=== PATIENT | male | born 1960 | race Hispanic/Latino ===

== ENCOUNTER 2024-08-01 15:21 | Inpatient (IN) | payer OTHER ==
[~2024-08-01] VITALS: Ht 180.3 cm; Wt 132.0 kg
[~2024-08-01 15:21] MED LIST: AEC81 PO; AMLO-257 PO; ATOR10 PO; AZIT250T9 PO; BENZ-226 PO; BUDE0.5A3 IH; BUDE10.7 IH; CEFD300C3 PO; FAMO20TA8 PO; LISI10TA24 PO; LISI20TA24 PO; METF-446 PO
--- NOTE | 2024-08-01 15:48 | EKG ---
[facility] Test Date: 2024-08-01 Test Time: 15:45:15 Pat Name: JAY WAHL Department: [facility] Room: Gender: M Ad Copy Writer: [id number] : 1960 Requested By: RISHABH ECHEVERRIA Order Number: [id number] Reading MD: Russell Garcia Measurements Intervals [place] Rate: 60 P: 15 MO: 174 QRS: 22 QRSD: 111 T: 19 QT: 420 QTc: 422 Interpretive Statements Sinus rhythm Compared to ECG 01/03/2024 20:29:01 Left ventricular hypertrophy no longer present ST (T wave) deviation no longer present Electronically Signed On 08-01-2024 15:48:55 GL ACCOUNTANT by Russell Garcia Please click the below link to view image of tracing.
--- NOTE | 2024-08-01 16:00 | HMCIMG ---
Exam: NONCONTRAST CT BRAIN REASON: Syncope. COMPARISON: None. TECHNIQUE: Images are obtained from vertex to the skull base. The exam was performed without IV contrast. FINDINGS: There is normal appearing brain parenchyma. There are no focal mass lesions. There is is no evidence of intracranial hemorrhage or acute stroke. Ventricles and sulci appear normal. Posterior fossa and brainstem structures are unremarkable. Paranasal sinuses and remaining extracranial soft tissues appear normal as well. IMPRESSION: 1. Normal noncontrast CT brain. CT was performed with one or more following dose reduction techniques: automated exposure control, adjustment of the mA and kv according to patient's size, or use of a iterative reconstruction technique.
--- NOTE | 2024-08-01 16:25 | HMCIMG ---
CHEST 1VW REASON: Shortness of breath COMPARISON: None. FINDINGS: Single view of the chest was obtained. Lungs are clear. Heart size is normal. There is no pulmonary vascular congestion. Mediastinum and bony thorax appear unremarkable. IMPRESSION: 1. Normal single view chest x-ray.
[2024-08-01 16:27] LABS: BASOPHILS # (AUTO) 0.06 K/uL (0.00-0.20); BASOPHILS % (AUTO) 0.6 % (0.0-5.0); EOSINOPHILS % (AUTO) 1.9 % (0.0-8.0); HEMATOCRIT 45.9 % (42-54); IMMATURE GRANULOCYTE ABSOLUTE 0.04 K/uL (0-1); LYMPHOCYTES # (AUTO) 1.8 K/uL (1.0-4.8); LYMPHOCYTES % (AUTO) 17.4 % (21.0-51.0); MEAN CORPUSCULAR HEMOGLOBIN 30.4 pg (27.0-33.0); MEAN CORPUSCULAR HGB CONC 34.2 g/dL (32.0-36.0); MONOCYTES # (AUTO) 0.8 K/uL (0.1-1.0); MONOCYTES % (AUTO) 7.2 % (3.0-13.0); NEUTROPHILS # (AUTO) 7.6 K/uL (1.8-7.7); NEUTROPHILS % (AUTO) 72.5 % (40.0-77.0); PLATELET COUNT (AUTO) 199 K/uL (130-400); RED BLOOD CELL COUNT(AUTO) 5.16 MIL/uL (4.50-6.20); RED CELL DISTRIBUTION WIDTH 13.9 % (11.0-15.5); WHITE BLOOD COUNT (AUTO) 10.5 K/uL (4.8-10.8)
[2024-08-01 16:42] LABS: CREATININE 0.8 mg/dL (0.5-1.3); POTASSIUM 3.9 mmol/L (3.5-5.1)
[2024-08-01 16:45] LABS: INR 0.95 (0.85-1.15); PROTHROMBIN TIME 10.7 SEC (9.6-11.6)
[2024-08-01 16:47] LABS: PARTIAL THROMBOPLASTIN TIME 26.8 SEC (26.3-35.5)
[2024-08-01 16:48] LABS: ALBUMIN 3.7 g/dL (3.5-5.0); BILIRUBIN,DIRECT 0.2 mg/dL (0.0-0.3); BILIRUBIN,TOTAL 0.7 mg/dL (0.2-1.0); TOTAL PROTEIN, SERUM 7.3 g/dL (6.0-8.3)
--- NOTE | 2024-08-01 17:00 | ERN ---
ED Note History of Present Illness Stated Complaint: SYNCOPE LAST WEEK Chief Complaint: Syncope Time Seen by MD: 15:24 Dictation: This is a case of a 64-year-old male with a past medical history of obesity, diabetes mellitus type 2, hypertension, cholesterol who presented to the ER for further evaluation in view of 2 syncope episodes in the past 2 months. He reports that during his 1st syncope episode in May, he experienced dizziness, generalized body weakness and fell, hitting his head. In July, he had additional syncope episode, accompanied by dizziness, generalized body weakness and a significantly elevated blood pressure according to his son. He also experienced post syncope confusion during these episodes. He also mentions about chronic bilateral lower extremity edema for 2-3 years. He has recently started using amlodipine besylate 5 mg p.o. once daily. He denies fever, chills, nausea, vomiting, shortness of breath, chest pain, palpitations, abdominal pain, burning sensation when urinating/increased frequency of urination, diarrhea/constipation. Allergies: Coded Allergies: No Known Drug Allergies (Verified Allergy, Unknown, 09/05/21) Home Meds Active Scripts Azithromycin (Azithromycin) 250 Mg Tablet, 250 MG PO BID, #14 TAB Prov:CHUCHOTHAD SAAVEDRA GI ASST 24 Cefdinir (Cefdinir) 300 Mg Capsule, 300 MG PO BID, #14 CAP Prov:CHUCHOTHAD SAAVEDRA B GI ASST 24 Lisinopril (Lisinopril) 10 Mg Tablet, 10 MG PO BID, #30 TAB Prov:THAD MCLEOD GI ASST 24 Budesonide (Budesonide) 0.5 Mg/2 Ml Ampul.neb, 0.5 MG IH BIDRESP, #30 INH Prov:CHUCHOTHAD SAAVEDRA GI ASST 24 Famotidine (Famotidine) 20 Mg Tablet, 20 MG PO BID, #30 TAB Prov:CHUCHOTHAD SAAVEDRA GI ASST 24 Benzonatate (Benzonatate) 100 Mg Capsule, 200 MG PO TID, #60 CAP Prov:THAD MCLEOD GI ASST 01/06/24 Reported Medications Budesonide/Glycopyr/Formoterol (Breztri Aerosphere Inhaler) 160 Mcg-9 Mcg-4.8 Mcg/Actuation Hfa.aer.ad, 10.7 GM IH Q6HPRN 01/04/24 Aspirin (ASPIRIN 81 MG ECTAB) 81 Mg Ectab, 81 MG PO DAILY, TAB.EC 01/04/24 Lisinopril (Lisinopril) 20 Mg Tablet, 10 MG PO BID, TAB 01/04/24 Amlodipine Besylate (Amlodipine Besylate) 5 Mg Tablet, 5 MG PO BID, TAB 01/04/24 Metformin HCl (Metformin HCl) 1,000 Mg Tablet, 1000 MG PO BID, TAB 01/04/24 Atorvastatin Calcium (LIPITOR) 20 Mg Tab, 20 MG PO HS, TAB 01/04/24 Past Medical History Past Medical History: Diabetes-Type II, High Cholesterol, Hypertension Surgical History: None Review of System Dictation Constitutional: No appetite loss, No fevers, chills , No night sweats, No weakness, fatigue Neck: No swelling. pain, neck stiffness Respiratory: No cough, shortness of breath, wheezing Cardiovascular: No chest pain,, palpitations, dyspnea, No edema Gastrointestinal: No abdominal pain, No nausea, vomiting, No diarrhea, constipation Genitourinary: No painful urination, No blood in urine, No urinary incontinence, No frequency or urgency Musculoskeletal: No joint pain, muscle pain, swelling or stiffness, Neurological: No numbness, tingling, No weakness, tremors or seizures Psychiatric: : No depression, No anxiety, No sleep disturbance, No Memory changes Initial Vital Sign VS Vital Signs Date Time Temp Pulse Resp B/P (MAP) Pulse Ox O2 Delivery O2 Flow Rate FiO2 08/01/24 15:22 98.2 62 20 134/82 Room Air 0 08/01/24 16:58 96 21 Physical Exam Dictation Physical Exam Dictation VITAL SIGNS: Reviewed. GENERAL APPEARANCE: Alert, oriented x3, no acute distress, obese. HEAD AND FACE: Non-traumatic. EYES: PERRL, pink conjunctivas, eyelid no trauma, anterior chamber clear. NOSE: No discharge, no bleeding. OROPHARYNX: Mouth normal, teeth no caries, tongue pink. Pharynx clear, no erythema. Tonsils no exudates, no abscesses noted. Mucous membrane moist. NECK: Supple, non-tender, no thyromegaly, no masses, no JVD, no bruits. BREAST: Deferred. CHEST: No tenderness, no crepitus, no paradoxical movement, no retractions. LUNGS: Clear, well-ventilated, symmetric, no rales, no wheezing, no rhonchi, no stridor, good breath sounds bilaterally. HEART: Regular rate, regular rhythm VASCULAR: No peripheral edema. ABDOMEN: Soft, positive bowel sounds, nondistended, no guarding, nontender, no rebound RECTAL: Deferred. GENITAL: Deferred. NEUROLOGICAL: Normal speech, gross motor function intact, gross sensory function intact. MUSCULOSKELETAL: Neck nontender, full range of motion, back nontender, full range of motion. EXTREMITIES: Nontender, full range of motion. SKIN: Color pink, dry, no turgor, no rash, no lacerations, no abrasions, no contusions. LYMPHATICS: Deferred. Results (Laboratory/Radiology) Laboratory/Radiology Laboratory Tests Test 08/01/24 16:21 White Blood Count 10.5 K/uL (4.8-10.8) Red Blood Count 5.16 MIL/uL (4.50-6.20) Hemoglobin 15.7 g/dL (14.0-18.0) Hematocrit 45.9 % (42-54) Mean Corpuscular Volume 89.0 fL (79-99) Mean Corpuscular Hemoglobin 30.4 pg (27.0-33.0) Mean Corpuscular Hemoglobin Concent 34.2 g/dL (32.0-36.0) Red Cell Distribution Width 13.9 % (11.0-15.5) Platelet Count 199 K/uL (130-400) Mean Platelet Volume 11.6 fL (7.5-10.5) H Immature Granulocyte % (Auto) 0.4 % (0-1) Neutrophils (%) (Auto) 72.5 % (40.0-77.0) Lymphocytes (%) (Auto) 17.4 % (21.0-51.0) L Monocytes (%) (Auto) 7.2 % (3.0-13.0) Eosinophils (%) (Auto) 1.9 % (0.0-8.0) Basophils (%) (Auto) 0.6 % (0.0-5.0) Neutrophils # (Auto) 7.6 K/uL (1.8-7.7) Lymphocytes # (Auto) 1.8 K/uL (1.0-4.8) Monocytes # (Auto) 0.8 K/uL (0.1-1.0) Eosinophils # (Auto) 0.20 K/uL (0.00-0.70) Basophils # (Auto) 0.06 K/uL (0.00-0.20) Absolute Immature Granulocyte (auto 0.04 K/uL (0-1) Nucleated Red Blood Cells 0.0 % (0.0-0.19) Prothrombin Time 10.7 SEC (9.6-11.6) Prothromb Time International Ratio 0.95 (0.85-1.15) Activated Partial Thromboplast Time 26.8 SEC (26.3-35.5) Sodium Level 142 mmol/L (136-145) Potassium Level 3.9 mmol/L (3.5-5.1) Chloride Level 104 mmol/L (101-111) Carbon Dioxide Level 29 mmol/L (21-32) Blood Urea Nitrogen 9 mg/dL (7-18) Creatinine 0.8 mg/dL (0.5-1.3) Glomerular Filtration Rate Calc 99 mL/min (>90) Random Glucose 104 mg/dL (70-105) Total Calcium 9.3 mg/dL (8.5-10.1) Total Bilirubin 0.7 mg/dL (0.2-1.0) Direct Bilirubin 0.2 mg/dL (0.0-0.3) Aspartate Amino Transf (AST/SGOT) 23 U/L (10-37) Alanine Aminotransferase (ALT/SGPT) 29 U/L (12-78) Alkaline Phosphatase 99 U/L (50-136) Troponin I High Sensitivity 10 ng/L (4-75) Total Protein 7.3 g/dL (6.0-8.3) Albumin 3.7 g/dL (3.5-5.0) X-RAY Comment: PROCEDURE: CXR1VW - CHEST 1VW CHEST 1VW REASON: Shortness of breath COMPARISON: None. FINDINGS: Single view of the chest was obtained. Lungs are clear. Heart size is normal. There is no pulmonary vascular congestion. Mediastinum and bony thorax appear unremarkable. IMPRESSION: 1. Normal single view chest x-ray. CT Scan Comment: PROCEDURE: HEAD WO - CT HEAD/BRAIN W/O CONTRAST Exam: NONCONTRAST CT BRAIN REASON: Syncope. COMPARISON: None. TECHNIQUE: Images are obtained from vertex to the skull base. The exam was performed without IV contrast. FINDINGS: There is normal appearing brain parenchyma. There are no focal mass lesions. There is is no evidence of intracranial hemorrhage or acute stroke. Ventricles and sulci appear normal. Posterior fossa and brainstem structures are unremarkable. Paranasal sinuses and remaining extracranial soft tissues appear normal as well. IMPRESSION: 1. Normal noncontrast CT brain. ED Course ED Course Orders Procedure Category Date Status Time 12 Lead Ekg Tracing- EKG 08/01/24 Resulted Technical 15:24 Cbc With Differential LAB 08/01/24 Complete 15:24 Basic Metabolic Panel LAB 08/01/24 Complete 15:24 Hepatic Function Panel LAB 08/01/24 Complete 15:24 Pt And Ptt LAB 08/01/24 Complete 15:24 Troponin I High LAB 08/01/24 Complete Sensitivity 15:24 Urinalysis LAB 08/01/24 Logged W/Microscopic 15:24 Chest 1vw RAD 08/01/24 Resulted 15:24 Ct Head/Brain W/O CT 08/01/24 Resulted Contrast 15:24 Vital Signs Date Time Temp Pulse Resp B/P (MAP) Pulse Ox O2 Delivery O2 Flow Rate FiO2 08/01/24 18:24 66 18 156/85 94 Room Air* 0 08/01/24 16:58 98.8 62 15 154/84 96 Room Air* 0 21 08/01/24 15:22 98.2 62 20 134/82 Room Air 0 Medical Decision Making [facility] Potential differential diagnoses include: Cardiac arrhythmias Orthostatic syncope Assessment: We will order CBC to rule any anemia, infections and to evaluate the overall health of the patient. CMP was ordered in order to assess various electrolytes, kidney function, liver function ,protein levels and blood glucose levels, I will re-evaluate the patient after treatment and diagnostic exams have returned to determine whether they require further testing, can be safely discharged home, or need admission for further treatment and evaluation. Given the social determinants of health affecting care, including literacy, access to medical care, prescription drug management, and [id number] drugs, I will ensure that treatment plans are tailored accordingly. Revaluation : Patient is alert awake and oriented. Hemodynamically stable. La bs CBC, BMP, PT INR results are unremarkable. Chest x-ray and CT head resulted in no acute findings. Disposition: DX & DISP Disposition: Inpatient Departure Impression: Primary Impression: Syncope Condition: Stable Referrals: SELF,REFERRAL (PCP) DANILO ORTIZ MD Aug 01, 2024 17:00 RISHABH ECHEVERRIA MD Aug 01, 2024 18:27
--- NOTE | 2024-08-01 18:27 | NUR ---
ENDORSED CARE TO KAVITHA MIJARES AT THIS TIME.
[2024-08-01] MEDS ORDERED: morPHINE 2 MG SYG IVP PRN (18:30)
[2024-08-01] MEDS ORDERED: ondanSETRON 4MG INJ IV PRN (18:30)
--- NOTE | 2024-08-01 18:30 | HP ---
History of Present Illness Reason for Visit: syncope History of Present Illness Mr. Eng is a 64-year-old male that was seen and examined today on 08/01/2024. Patient is a good historian and personal health. Patient states that he came to the emergency department with a chief complaint of lightheadedness. Onset was May 2024. Location is to head. Duration is on and off. Episodes last 5-10 seconds. Character is described as loss of balance. There was no alleviating factors. There was no aggravating factors. On previous episodes of dizziness they have been precipitated by cutting the grass. But patient has also had episodes that occur spontaneously while driving. Patient denies any associated chest pain or shortness and breath. Patient was sent to emergency department from the [place] after PCP contacted patient's leader writer in reference to a syncope. Dr. Santiago recommended patient go to the emergency department for evaluation. Today in the emergency department vital signs are within normal limits, CBC is unremarkable, chemistry unremarkable, no urinalysis has been ordered or sent to lab, chest x-ray unremarkable, CT head unremarkable. Emergency room physician recommended that patient be admitted with a diagnosis of syncope. Past Medical History Patient History: Unknown MOTHER FATHER PAST MEDICAL HISTORY: Hypertension, hyperlipidemia, diabetes mellitus type PAST SURGICAL HISTORY: Denied any surgical history PAST SOCIAL HISTORY: Previous history of smoking. Denied any alcohol use. Denied any drug use Review of Systems General: No Fever, No Chills, No Night Sweats, No Fatigue, No Malaise, No Appetite, No Other HEENT: No Head Aches, No Visual Changes, No Eye Pain, No Ear Pain, No Dysphasia, No Sinus Congestion, No Post Nasal Drip, No Sore Throat, No Other Pulmonary: No Dyspnea, No Cough, No Pleuritic Chest Pain, No Other Cardiovascular: Lt Headedness; No: Chest Pain, Palpitations, Orthopnea, Paroxysmal Noc. Dyspnea, Edema, Other Gastrointestinal: No: Nausea, Vomiting, Abdominal Pain, Diarrhea, Constipation, Melena, Hematochezia, Other Genitourinary: No Dysuria, No Frequency, No Incontinence, No Hematuria, No Retention, No Other Musculoskeletal: No: other, neck pain, shoulder pain, arm pain, back pain, hand pain, leg pain, foot pain Skin: No Urticaria, No Rash, No Other Neurological: No: Weakness, Numbness, Incoordination, Change in speech, Confusion, Seizures, Other Allergies: Coded Allergies: No Known Drug Allergies (Verified Allergy, Unknown, 09/05/21) Scheduled Amlodipine Besylate (Amlodipine Besylate), 5 MG PO BID, (Reported) Aspirin (Aspirin 81 Mg Ectab), 81 MG PO DAILY, (Reported) Atorvastatin Calcium (Lipitor), 20 MG PO HS, (Reported) Azithromycin (Azithromycin), 250 MG PO BID Benzonatate (Benzonatate), 200 MG PO TID Budesonide (Budesonide), 0.5 MG IH BIDRESP Budesonide/Glycopyr/Formoterol (Breztri Aerosphere Inhaler), 10.7 GM IH Q6HPRN, (Reported) Cefdinir (Cefdinir), 300 MG PO BID Famotidine (Famotidine), 20 MG PO BID Lisinopril (Lisinopril), 10 MG PO BID, (Reported) Lisinopril (Lisinopril), 10 MG PO BID Metformin HCl (Metformin HCl), 1,000 MG PO BID, (Reported) Exam Vital Signs Vital Signs Date Time Temp Pulse Resp B/P (MAP) Pulse Ox O2 Delivery O2 Flow Rate FiO2 08/01/24 18:24 66 18 156/85 94 Room Air* 0 21 08/01/24 16:58 98.8 General Appearance: Alert, Oriented X3, Cooperative, No acute distress HEENT: Atraumatic, EOMI Respiratory: Clear to auscultation, Normal air movement, NL respiratory effort Cardiovascular: Regular rate, Regular rhythm, Normal S1, Normal S2 Abdominal: Normal bowel sounds, Soft, No tenderness Extremities: No edema Skin: No significant lesion Neuro: Normal speech, Strength at 5/5 X4 ext, Sensation intact, Cranial nerves 3-12 NL Psych/Mental Status: Mental status NL, Mood NL, Thoughts/Content NL Assessment/Plan ASSESSMENT: [ Syncope, POA Diabetes mellitius type2 Hypertension Hyperlipidemia] PLAN: [ Admit patient to PCU as inpatient status. Place patient on telemetry monitoring. Patient will be followed by cardiology service, Dr. santiago 2D echo in a.m. Carotid Dopplers, follow up with the results Neuro checks every 4 hours with the vital signs (check GCS, level of consciousness, extremity movement, pupil reaction, hand grasp strength, speech clarity) Fall precautions Orthostatic vital signs Check hemoglobin A1c in a.m. Glucometer checks a.c. and HS 1800 ADA diet Humulin R sliding scale 1/2 dose Consider resuming home medications once they are reconciled For now, Hydralazine 10 mg IV every 4 hours for systolic blood pressure greater than 160 mmHg GI prophylaxis, famotidine 20 mg by mouth once daily. DVT prophylaxis, Lovenox 40 mg subcutaneously once daily. ADVANCED CARE PLANNING 1. Which of the following were discussed? Hospice Care - Yes Therapeutic options - Yes Advance Directives - Yes patient states he does not have any advance directives in place at this time, however his can make decisions for him if becomes unable. Other discussions - patient wishes to remain a full code at this time 2. Discussed with who? Patient 3. Voluntary nature of this service was explained to the patient? Yes 4. Amount of time spent - ____ 16 minutes ___ 5. Reviewed by Physician? (if this service was performed by NPP) Yes This document was generated in part using voice recognition software, occasional wrong word or sound alike substitutions may have occurred due to the inherent limitations of voice recognition software. Read the chart carefully and recognize using context, where the substitutions have occurred. Although every effort was made to edit the content, welding equipment repairer supervisor and typing errors may occur ATTESTATION BY PHYSICIAN I have seen and examined the patient. I reviewed the documentation, medical decision making, and treatment plan as noted by the mid-level provider above. I agree with the findings and plan of care. DEV [facility] Aug 01, 2024 18:30
--- NOTE | 2024-08-01 20:08 | HMCIMG ---
ULTRASOUND THE CAROTID ARTERIES INDICATION: Syncope TECHNIQUE: Interrogation of the right and left common, internal, and external carotid systems were performed using grayscale, color, and spectral Doppler. COMPARISON: None FINDINGS: (CM/SEC) RIGHT CCA: 131 ICA: 107 ECA: 211, perhaps elevated due to tortuosity. ICA/CCA ratio: 0.8 LEFT CCA: 127 ICA: 72 ECA: 268, perhaps elevated due to tortuosity. ICA/CCA ratio: 0.6 VERTEBRAL ARTERIES: Antegrade flow bilaterally. Normal Color Doppler flow completely fills the lumen of all major vessels, except for mild soft plaque formation along the left external carotid arterial [place] proximally. Normal high resistance flow pattern is present throughout all major vessels on Spectral Doppler analysis. IMPRESSION: No evidence for moderate or high-grade flow-rate limiting stenosis. Parameters as reported.
[2024-08-01] MEDS: INSULIN humuLIN R 100 UNIT/ML 3ML SQ SCH (20:36)
[2024-08-01 20:50] LABS: APPEARANCE,URINE CLEAR (CLEAR); BILIRUBIN,URINE NEGATIVE (NEGATIVE); COLOR,URINE YELLOW (YELLOW); GLUCOSE, URINE (UA) NEGATIVE (NEGATIVE); KETONES,URINE NEGATIVE (NEGATIVE); LEUKOCYTE ESTERASE ,URINE NEGATIVE Leu/uL (NEGATIVE); NITRATE,URINE NEGATIVE (NEGATIVE); OCCULT BLOOD,URINE NEGATIVE (NEGATIVE); PH,URINE 6.5 (5.0-8.0); PROTEIN,URINE NEGATIVE (NEGATIVE); UROBILINOGEN,URINE 3 mg/dL (0.2-1.0)
[2024-08-01 20:55] LABS: ADD UA MICROSCOPIC NO
[2024-08-01 22:15] VITALS: BP 137/86; PULSE 72; RESP 18; TEMP 97.7; O2SAT 96
[2024-08-02] VITALS (11 sets, daily range): BP systolic 126–155; BP diastolic 45–85; PULSE 52–68; RESP 16–18; TEMP 97.7–98.3; O2SAT 95–96
[2024-08-02 04:07] LABS: BASOPHILS # (AUTO) 0.04 K/uL (0.00-0.20); BASOPHILS % (AUTO) 0.4 % (0.0-5.0); EOSINOPHILS # (AUTO) 0.36 K/uL (0.00-0.70); EOSINOPHILS % (AUTO) 3.8 % (0.0-8.0); IMMATURE GRANULOCYTE ABSOLUTE 0.02 K/uL (0-1); LYMPHOCYTES # (AUTO) 2.2 K/uL (1.0-4.8); LYMPHOCYTES % (AUTO) 22.7 % (21.0-51.0); MEAN CORPUSCULAR HGB CONC 34.4 g/dL (32.0-36.0); MEAN CORPUSCULAR VOLUME 87.2 fL (79-99); MONOCYTES # (AUTO) 0.9 K/uL (0.1-1.0); MONOCYTES % (AUTO) 9.2 % (3.0-13.0); NEUTROPHILS % (AUTO) 63.7 % (40.0-77.0); PLATELET COUNT (AUTO) 196 K/uL (130-400); RED BLOOD CELL COUNT(AUTO) 4.93 MIL/uL (4.50-6.20); RED CELL DISTRIBUTION WIDTH 13.9 % (11.0-15.5); WHITE BLOOD COUNT (AUTO) 9.5 K/uL (4.8-10.8)
[2024-08-02 04:24] LABS: PHOSPHORUS 3.7 mg/dL (2.5-4.9); POTASSIUM 4.2 mmol/L (3.5-5.1)
[2024-08-02] MEDS: FAMOTIDINE 20MG TAB PO SCH (09:09)
[2024-08-02] MEDS: ENOXAPARIN SODIUM 40 MG/0.4 ML SYRINGE SQ SCH (09:14)
--- NOTE | 2024-08-02 12:20 | PN ---
[facility] PROGRESS NOTE Date of Service: Aug 02, 2024 Time of Service: 12:17 SUBJECTIVE: Patient is seen and examined at bedside, BP 136/78, heart rate of 52, afebrile, saturating normal on room air. CBC unremarkable. Chest x-ray on admission normal single-view. CT head normal. Carotid ultrasound no evidence of moderate or high-grade flow limiting stenosis. Echocardiogram pending. REVIEW OF SYSTEMS CONSTITUTIONAL: Denies fevers, chills, or night sweats. No unintentional weight loss reported. NEUROLOGICAL: Denies headache, amaurosis fugax, motor weakness, sensory def icit, vertigo/spinning sensation, gait abnormalities, or tremors. ENT: No hearing loss, otalgia, otorrhea, rhinitis, rhinorrhea, hoarseness, or sore throat. CARDIOVASCULAR: Denies any exertional angina, dyspnea on exertion, orthopnea, paroxysmal nocturnal dyspnea, palpitations, life-threatening arrhythmias, claudication. PULMONARY: Denies any shortness of breath, cough, phlegm/sputum, hemoptysis, pleuritic chest pain. SLEEP: Denies morning headaches, daytime somnolence or napping. Denies difficulty falling asleep, staying asleep, waking from sleep. Denies knowledge of snoring. GASTROINTESTINAL: Denies any type of dysphagia to either liquids or solids. Denies nausea, vomiting, pyrosis, early satiety, abdominal pain, diarrhea, constipation, or changes in stool consistency or caliber. Denies coffee-ground emesis, hematemesis, hematochezia, or melanotic stools. GENITOURINARY: Denies frequency, urgency, nocturia, hematuria or incontinence (Storage/Irritative symptoms.) Low urinary stream, straining to void, urinary intermittency or hesitancy, splitting of the voiding stream, terminal dribbling. ENDOCRINOLOGIC: Denies polyuria, polydipsia, polyphagia or heat/cold intolerances. HEMATOLOGIC: Denies thrombophilia/previous clots, or coagulopathy/bleeding disorders. ONCOLOGIC: Denies personal history of malignancy. DERMATOLOGIC: Denies rashes or pruritus. PSYCHIATRIC: Denies any suicidal or homicidal ideation. Denies hallucinations. PHYSICAL EXAM GENERAL APPEARANCE: The patient is awake, alert, and oriented, in no acute cardiopulmonary distress. NEUROLOGICAL: Cranial nerves II-XII grossly intact. Motor is 5/5 in bilateral upper and lower extremities proximal to distal. No sensory deficits. HEENT: Face is symmetric. Pupils are equal and reactive. Extraocular movements are intact. NECK: Supple. No JVD. No thyromegaly. No submental, submandibular, pre- /postauricular, occipital or supraclavicular lymphadenopathy. CHEST: Normal chest expansion. No Telemetry. LUNGS: Absence of any rales, rhonchi or any wheezing. CARDIOVASCULAR: Regular. S1 and S2 normal. No appreciable rubs, murmurs or gallops. ABDOMEN: Soft, nontender, and nondistended. There is no rebound, voluntary guarding, or rigidity. : Deferred. No Nesbitt. EXTREMITIES: Non-edematous and not cyanotic. No clubbing. Good capillary refill. SKIN: No skin breakdown. Vital Signs (last 8hr) Date Time Temp Pulse Resp B/P (MAP) Pulse Ox O2 Delivery O2 Flow Rate FiO2 08/02/24 11:50 97.7 52 16 136/78 96 Room Air 08/02/24 07:50 98.1 53 16 152/75 95 Room Air 08/02/24 07:20 96 Room Air* 0 21 08/02/24 04:30 98.2 55 18 150/82 96 Room Air LABS: Laboratory: Test 08/02/24 06:27 08/02/24 03:58 08/01/24 20:40 08/01/24 16:21 Range/Units Whole Blood Glucose 102 70-110 MG/DL White Blood Count 9.5 4.8-10.8 K/uL Red Blood Count 4.93 4.50-6.20 MIL/uL Hemoglobin 14.8 14.0-18.0 g/dL Hematocrit 43.0 42-54 % Mean Corpuscular Volume 87.2 79-99 fL Mean Corpuscular Hemoglobin 30.0 27.0-33.0 pg Mean Corpuscular Hemoglobin Concent 34.4 32.0-36.0 g/dL Red Cell Distribution Width 13.9 11.0-15.5 % Platelet Count 196 130-400 K/uL Mean Platelet Volume 11.6 H 7.5-10.5 fL Immature Granulocyte % (Auto) 0.2 0-1 % Neutrophils (%) (Auto) 63.7 40.0-77.0 % Lymphocytes (%) (Auto) 22.7 21.0-51.0 % Monocytes (%) (Auto) 9.2 3.0-13.0 % Eosinophils (%) (Auto) 3.8 0.0-8.0 % Basophils (%) (Auto) 0.4 0.0-5.0 % Neutrophils # (Auto) 6.0 1.8-7.7 K/uL Lymphocytes # (Auto) 2.2 1.0-4.8 K/uL Monocytes # (Auto) 0.9 0.1-1.0 K/uL Eosinophils # (Auto) 0.36 0.00-0.70 K/uL Basophils # (Auto) 0.04 0.00-0.20 K/uL Absolute Immature Granulocyte (auto 0.02 0-1 K/uL Nucleated Red Blood Cells 0.0 0.0-0.19 % Sodium Level 142 136-145 mmol/L Potassium Level 4.2 3.5-5.1 mmol/L Chloride Level 105 101-111 mmol/L Carbon Dioxide Level 30 21-32 mmol/L Blood Urea Nitrogen 10 7-18 mg/dL Creatinine 1.0 0.5-1.3 mg/dL Glomerular Filtration Rate Calc 84 >90 mL/min Random Glucose 137 H 70-105 mg/dL Hemoglobin A1c 6.0 4.0-6.0 % Estimated Average Glucose (eAG) 126 70-126 mg/dL Total Calcium 9.1 8.5-10.1 mg/dL Phosphorus Level 3.7 2.5-4.9 mg/dL Magnesium Level 2.00 1.80-2.40 mg/dL Urine Color YELLOW YELLOW Urine Appearance CLEAR CLEAR Urine pH 6.5 5.0-8.0 Urine Specific Jackson 1.022 1.001-1.031 Urine Protein NEGATIVE NEGATIVE mg/dL Urine Glucose (UA) NEGATIVE NEGATIVE mg/dL Urine Ketones NEGATIVE NEGATIVE mg/dL Urine Occult Blood NEGATIVE NEGATIVE Urine Nitrate NEGATIVE NEGATIVE Urine Bilirubin NEGATIVE NEGATIVE mg/dL Urine Urobilinogen 3 H 0.2-1.0 mg/dL Urine Leukocyte Esterase NEGATIVE NEGATIVE Cynthia/uL Prothrombin Time 10.7 9.6-11.6 SEC Prothromb Time International Ratio 0.95 0.85-1.15 Activated Partial Thromboplast Time 26.8 26.3-35.5 SEC Total Bilirubin 0.7 0.2-1.0 mg/dL Direct Bilirubin 0.2 0.0-0.3 mg/dL Aspartate Amino Transf (AST/SGOT) 23 10-37 U/L Alanine Aminotransferase (ALT/SGPT) 29 12-78 U/L Alkaline Phosphatase 99 50-136 U/L Troponin I High Sensitivity 10 4-75 ng/L Total Protein 7.3 6.0-8.3 g/dL Albumin 3.7 3.5-5.0 g/dL Current Medications Medications (Trade) Dose Ordered Sig/Su Route PRN Reason Start Time Stop Time Status Last Admin Dose Admin Acetaminophen (TYLenol 325MG TAB) 650 mg Q6H PRN PO TEMPERATURE GREATER THAN 101.5 08/01/24 18:30 08/31/24 18:29 Enoxaparin Sodium (Lovenox) 40 mg DAILY SQ 08/02/24 09:00 09/01/24 08:59 08/02/24 09:14 40 MG Famotidine (Pepcid 20mg Tab) 20 mg DAILY PO 08/02/24 09:00 09/01/24 08:59 08/02/24 09:09 20 MG Hydralazine HCl (APRESOLine 20MG INJ) 10 mg Q6H PRN IV For:SBP above 160;DBP above 90 08/01/24 18:30 08/31/24 18:29 Insulin Human Regular (humuLIN R 100 UNIT/ML 3ML) INSULIN SLIDING SCAL... ACHS SQ 08/01/24 21:00 08/31/24 20:59 Morphine Sulfate (morPHINE 2MG SYG) 2 mg Q4H PRN IVP SEVERE PAIN (7-10) 08/01/24 18:30 08/08/24 18:29 Ondansetron HCl (zoFRAN 4MG INJ) 4 mg Q6H PRN IV NAUSEA/VOMITING 08/01/24 18:30 08/31/24 18:29 DIAGNOSTICS / RADIOLOGY: [ ] ASSESSMENT: Syncope, POA Diabetes mellitius type2 Hypertension Hyperlipidemia PLAN: Admit patient to PCU as inpatient status. Place patient on telemetry monitoring. Cardiology consultation requested, follow input and recommendation Echocardiogram ordered, to evaluate ejection fraction Carotid Doppler was unremarkable Neuro checks every 4 hours with the vital signs (check GCS, level of consciousness, extremity movement, pupil reaction, hand grasp strength, speech clarity) Fall precautions Orthostatic vital signs Hemoglobin A1c 6.0 Glucometer checks a.c. and HS 1800 ADA diet Humulin R sliding scale 1/2 dose Consider resuming home medications once they are reconciled For now, Hydralazine 10 mg IV every 4 hours for systolic blood pressure greater than 160 mmHg GI prophylaxis, famotidine 20 mg by mouth once daily. DVT prophylaxis, Lovenox 40 mg subcutaneously once daily. Disposition: Remains admitted to the PCU, continue telemetry monitoring, echocardiogram pending to evaluate ejection fraction, follow Cardiology input and recommendation. We will request PT to evaluate the patient. We will discuss discharge plan with case management. Total time spent greater than 30 minutes. SHU THOMAS MD Aug 02, 2024 12:20
--- NOTE | 2024-08-02 15:25 | NUR ---
cm note met with pt and states resides at home with spouse, independent with adls/ambulation, only uses cane at times. no provider no home services. goes to [facility] [place]. for md, meds and care. dc plan is back home states no dc needs. spouse can assist if needed. Addendum: 08/02/24 at 1530 by TANISHA ROSAS CM Amended: Links added.
[2024-08-02] MEDS: acetaMINOPHEN 325 MG TAB PO PRN (15:55)
--- NOTE | 2024-08-02 16:38 | HMCSR ---
APPROVED REPORT EXAM: Two-dimensional and M-mode echocardiogram with Doppler and color Doppler. INDICATION ICD: Syncope R55 2D Dimensions RVDd4.6 cmLVEF(%)57.2 (>50%)LVED Vol(simp.)134.0 mL IVSd1.0 (0.7-1.1cm)FS(%)30 %LVES Vol(simp.)52.1 mL LVDd5.6 (3.8-5.6cm)LA (2D)4.9 (1.6-4.0cm)LVEF(%, simp.)61 % PWd1.3 (0.7-1.1cm)Ao Root(2D)3.5 (2.0-3.7cm)LA ESV INDEX (4CH)35.50 mL/m2 IVSs1.4 cmLVOT diam2.2 (1.8-2.4cm)LA ESV INDEX (2CH)35.10 mL/m2 LVDs3.9 (2.5-4.0cm)LA ESV INDEX (BP)37.90 mL/m2 PWs1.4 cm Deformation Strain Apical 416.0 % Apical 226.0 % Apical 322.0 % Global Jgohut04.0 % M-Mode Dimensions EPSS0.3 cm LA (MM)5.2 (1.6-4.0cm) Ao Root(MM)3.4 (2.0-3.7cm) Aortic Valve AoV VTI0.4 mAo Mean GR6.0 mmHgLVOT VTI0.30 m [place] (VMAX)3.2 cm2AVA (VTI) 3.2 cm2 Mitral Valve MV E Vmax63.5 cm/sDECEL Gapu302 ms MV A Vmax75.2 cm/sP 1/2 T77 ms E/A ratio0.8MVA (PHT)2.9 cm2 TDI E/E' Medial9.5E/E' Lateral7.1 Medial E' Peak V6.70 cm/sLateral E' Peak V9.00 cm/s Pulmonary Valve PV VTI0.33 mPV Mean GR5 mmHg PI End Alyssia. Kurtis 86.9 cm/s Tricuspid Valve TR Vmax1.1 m/sRAP (EST) 8 dvLhZFDV75.7 mmHg TR Peak GR4.7 mmHg Left Ventricle The left ventricle is normal size. GLS -21.0%. There is normal LV segmental wall motion. Mild concent macy LVH. LVEF is 60-65%. Indeterminate diastolic dysfunction. Right Ventricle The right ventricle is mildly dilated measuring 4.6 cm at the base (normal < 4.1 cm). The right ventr icular systolic function is normal. Atria The left atrium size is mildly dilated with an LA ESV index of 38 mL/m. The right atrium size is nor mal. Aortic Valve The aortic valve is normal in structure. No aortic regurgitation is present. There is no aortic valvu lar stenosis. Mitral Valve The mitral valve is normal in structure. There is no mitral valve regurgitation noted. There is no mi tral valve stenosis. Tricuspid Valve The tricuspid valve is normal in structure. There is no tricuspid valve regurgitation noted. Pulmonic Valve The pulmonary valve is normal in structure. There is trace of pulmonic valvular regurgitation. Great Vessels The aortic root is normal in size. IVC is severely dilated and collapses >50% with inspiration. Pericardium There is no pericardial effusion. Other Information Quality : Adequate Conclusion The right ventricle is mildly dilated measuring 4.6 cm at the base (normal < 4.1 cm). The left atrium size is mildly dilated with an LA ESV index of 38 mL/m. Mild concentric LVH. GLS -21.0%. There is normal LV segmental wall motion. LVEF is 60-65%. Indeterminate diastolic dysfunction. The aortic valve is normal in structure. There is no mitral valve regurgitation noted. There is no pericardial effusion.
[2024-08-02] MEDS ORDERED: GABA-529 PO (17:03)
[2024-08-02] MEDS ORDERED: NITR0.4T50 SL (17:03)
--- NOTE | 2024-08-02 18:30 | CONS ---
[facility] CARDIOLOGY CONSULTATION REPORT Date Patient Seen: Aug 02, 2024 Time of Visit: 18:00 Requesting Physician: Dr. Favio Jolly Reason for Consultation: Syncopal episode 10 days ago, and two months ago. 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 He had an initial episode May 21, 2024 shortly after mowing his grass in the heat at which time he had syncope and hit his head on concrete. He did not seek medical attention. Ten days ago he had a recurrent episode of syncope shortly after visiting his brother, returning to his home in a golf cart and shortly after arising from the golf cart add adalberto syncope and then difficulty a rising from the ground due to generalized weakness. He did not seek medical attention despite the fact that he was symptomatic for about 1 hour with generalized weakness following this episode. The [facility] phoned the heart clinic office and we advised that he be evaluated in the ER and he was admitted for further evaluation and management. In the ER the patient had a CT of the head which demonstrated no acute findings. His EKG is of demonstrated normal tracings and a 2D echocardiogram demonstrated mild concentric LVH, an LVEF of 60-65%, a mildly dilated right ventricle, and n ormal valvular structures. The patient on telemetry has had sinus bradycardia in the 50 beat per minute range and nocturnally at midnight had a heart rate of 42 beats per minute in sinus rhythm. Patient previously was evaluated at the [facility] by Dr. Sacha Rossi October 19, 2021 for atypical chest pain and resting bradycardia. At that time was found to have mild resting bradycardia, worse nocturnally to 37 beats per minute, and a sleep study demonstrating mild obstructive sleep apnea with an ap oneyda-hypopnea index of only 2.4 per hour. Because of complaints of chronic orthopnea the patient was not able to lie supine for a Lexiscan Cardiolite stress test. Past Medical History: Essential hypertension Obesity Hyperlipidemia Type 2 diabetes mellitus Orthopnea Mild obstructive sleep apnea with apnea-hypopnea index of only 2.4 per hour. 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 Denies alcohol consumption. Denies illicit drug use Home Meds: Amlodipine 5 mg daily Lisinopril 40 mg daily Rosuvastatin 10 mg daily Metformin 1000 b.i.d. Gabapentin 300 mg q.h.s. p.r.n. Review of Systems: CONST: No fever, fatigue, or weight changes. EYES: No recent vision problems. ENT: No congestion, ear pain, or sore throat. C/V: No chest pain, palpitations, or edema. RESP: No cough, congestion, wheezing or shortness of breath. GI: No abdominal pain, nausea, vomiting, constipation, or diarrhea. : No incontinence or dysuria. SKIN: No rash. NEURO: No headache, focal numbness or weakness, dizziness, or seizures. PSYCH: No depression or anxiety. HEME: No abnormal bruising or bleeding. LYMPH: No swollen glands. Physical Examination: GENERAL: No acute distress. HEAD: Normal with no signs of head trauma. EYES: PERRLA, EOMI, conjunctiva and sclera normal. ENT: Hearing grossly intact, normal oropharynx. NECK: Supple without JVD. There is no tenderness, lymphadenopathy, or masses. No thyromegaly. Normal carotid upstrokes without bruits. LUNGS: Clear breath sounds bilaterally. No wheezes, or rhonchi. HEART: Mild resting bradycardia at 55 beats per minute. Normal rhythm. Normal S1 and S2 without murmurs, gallop or rub. VASC: Peripheral pulses +2 bilaterally. ABD: Bowel sounds normal, soft, nontender, no masses, no organomegaly. No audible bruits. : Not examined LYMPH: No lymphadenopathy noted. EXT: No clubbing, cyanosis or edema. SKIN: No rashes or lesions noted. NEURO: Awake, alert, and oriented x3. No focal sensory or strength deficits noted. Vital Signs (last 8hr) Date Time Temp Pulse Resp B/P (MAP) Pulse Ox O2 Delivery O2 Flow Rate FiO2 08/02/24 16:35 97.9 55 16 155/85 97 Room Air 08/02/24 11:50 97.7 52 16 136/78 96 Room Air Laboratory: Hematology Labs: Test 08/02/24 03:58 Range/Units White Blood Count 9.5 4.8-10.8 K/uL Red Blood Count 4.93 4.50-6.20 MIL/uL Hemoglobin 14.8 14.0-18.0 g/dL Hematocrit 43.0 42-54 % Mean Corpuscular Volume 87.2 79-99 fL Mean Corpuscular Hemoglobin 30.0 27.0-33.0 pg Mean Corpuscular Hemoglobin Concent 34.4 32.0-36.0 g/dL Red Cell Distribution Width 13.9 11.0-15.5 % Platelet Count 196 130-400 K/uL Mean Platelet Volume 11.6 H 7.5-10.5 fL Immature Granulocyte % (Auto) 0.2 0-1 % Neutrophils (%) (Auto) 63.7 40.0-77.0 % Lymphocytes (%) (Auto) 22.7 21.0-51.0 % Monocytes (%) (Auto) 9.2 3.0-13.0 % Eosinophils (%) (Auto) 3.8 0.0-8.0 % Basophils (%) (Auto) 0.4 0.0-5.0 % Neutrophils # (Auto) 6.0 1.8-7.7 K/uL Lymphocytes # (Auto) 2.2 1.0-4.8 K/uL Monocytes # (Auto) 0.9 0.1-1.0 K/uL Eosinophils # (Auto) 0.36 0.00-0.70 K/uL Basophils # (Auto) 0.04 0.00-0.20 K/uL Absolute Immature Granulocyte (auto 0.02 0-1 K/uL Nucleated Red Blood Cells 0.0 0.0-0.19 % Chemistry Labs: Test 08/02/24 16:02 08/02/24 03:58 08/01/24 16:21 Range/Units Whole Blood Glucose 102 70-110 MG/DL Sodium Level 142 136-145 mmol/L Potassium Level 4.2 3.5-5.1 mmol/L Chloride Level 105 101-111 mmol/L Carbon Dioxide Level 30 21-32 mmol/L Blood Urea Nitrogen 10 7-18 mg/dL Creatinine 1.0 0.5-1.3 mg/dL Glomerular Filtration Rate Calc 84 >90 mL/min Random Glucose 137 H 70-105 mg/dL Hemoglobin A1c 6.0 4.0-6.0 % Estimated Average Glucose (eAG) 126 70-126 mg/dL Total Calcium 9.1 8.5-10.1 mg/dL Phosphorus Level 3.7 2.5-4.9 mg/dL Magnesium Level 2.00 1.80-2.40 mg/dL Total Bilirubin 0.7 0.2-1.0 mg/dL Direct Bilirubin 0.2 0.0-0.3 mg/dL Aspartate Amino Transf (AST/SGOT) 23 10-37 U/L Alanine Aminotransferase (ALT/SGPT) 29 12-78 U/L Alkaline Phosphatase 99 50-136 U/L Troponin I High Sensitivity 10 4-75 ng/L Total Protein 7.3 6.0-8.3 g/dL Albumin 3.7 3.5-5.0 g/dL Coagulation Labs: Test 08/01/24 16:21 Range/Units Prothrombin Time 10.7 9.6-11.6 SEC Prothromb Time International Ratio 0.95 0.85-1.15 Activated Partial Thromboplast Time 26.8 26.3-35.5 SEC Diagnostics / Radiology: Bilateral carotid Doppler 08/01/2024: IMPRESSION: No evidence for moderate or high-grade flow-rate limiting stenosis. Parameters as reported. DICTATED BY: ALEX GODIWN MD DATE: 08/01/241999 2D echocardiogram 08/02/2024: Conclusion The right ventricle is mildly dilated measuring 4.6 cm at the base (normal < 4.1 cm). The left atrium size is mildly dilated with an LA ESV index of 38 mL/m. Mild concentric LVH. GLS -21.0%. There is normal LV segmental wall motion. LVEF is 60-65%. Indeterminate diastolic dysfunction. The aortic valve is normal in structure. There is no mitral valve regurgitation noted. There is no pericardial effusion. DICTATED BY: MONA WESLEY MD DATE: 08/02/24 1007 Impression and Plan: Syncopal episode 10 days ago, and two months ago: Resting bradycardia, nocturnally to 37 beats per minute documented since 2021, and nocturnally to 42 beats per minute on current admission, consistent with sleep apnea: Rule out symptomatic bradycardia and rule out chronotropic incompetence: -proceed with TSH and T4 -avoid any medications which could exacerbate bradycardia (currently on no medications that could lead to bradycardia) -ambulate and record heart rate -evaluate for orthostatic hypotension with orthostatic vital signs Q shift -check an a.m. cortisol level Negative bilateral carotid Doppler examination 08/01/2024: Normal LV systolic function with LVEF of 60-65% with mild concentric LVH and normal valvular structures by 2D echo 08/02/2024: Atypical Chest Pain: Multiple risk factors for coronary artery disease (hypertension, hyperlipidemia, and type 2 diabetes mellitus): -proceed with a Lexiscan Cardiolite stress test to screen for ischemia -begin antiplatelet therapy with aspirin 81 mg daily -check a fasting lipid profile and continue rosuvastatin with a target LDL less than 55 Mild sleep apnea by prior sleep study September 21, 2021 with apnea-hypopnea index of 2.4 episodes per hour only: -proceed with a repeat sleep study after discharge at the office of Dr. Brothers in [place] Comorbidities: Essential hypertension Hyperlipidemia Type 2 diabetes mellitus on metformin Obesity MONA WESLEY MD Aug 02, 2024 18:30
[2024-08-02] MEDS ORDERED: LISINOPRIL 10 MG TABLET PO SCH (21:00)
[2024-08-02] MEDS ORDERED: amLODIPine 5 MG TAB PO SCH (21:00)
[2024-08-02] MEDS: atorVAStatin 20 MG TABLET PO SCH (21:26)
--- NOTE | 2024-08-02 21:45 | EKG ---
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
[2024-08-03] VITALS (9 sets, daily range): BP systolic 130–166; BP diastolic 70–84; PULSE 49–73; RESP 18–20; TEMP 97.6–98.3; O2SAT 95–96
[2024-08-03 04:18] LABS: HEMATOCRIT 43.4 % (42-54); MEAN CORPUSCULAR HEMOGLOBIN 30.2 pg (27.0-33.0); MEAN CORPUSCULAR HGB CONC 33.9 g/dL (32.0-36.0); MEAN CORPUSCULAR VOLUME 89.1 fL (79-99); RED BLOOD CELL COUNT(AUTO) 4.87 MIL/uL (4.50-6.20); RED CELL DISTRIBUTION WIDTH 13.9 % (11.0-15.5); WHITE BLOOD COUNT (AUTO) 8.3 K/uL (4.8-10.8)
[2024-08-03 04:52] LABS: ALBUMIN 3.1 g/dL (3.5-5.0); BILIRUBIN,TOTAL 0.3 mg/dL (0.2-1.0); CREATININE 0.9 mg/dL (0.5-1.3); MAGNESIUM 1.9 mg/dL (1.80-2.40); POTASSIUM 4.4 mmol/L (3.5-5.1); THYROID STIMULATING HORMONE 0.71 uIU/mL (0.36-3.74); TOTAL PROTEIN, SERUM 6.3 g/dL (6.0-8.3)
--- NOTE | 2024-08-03 07:52 | NUR ---
PER DR. WESLEY, NURSE WALKED PT AROUND THE UNIT 3 TIMES. WITH EACH LAP HR WAS ASSESS AND RESULTS REPORTED TO DR. WESLEY. LAP 1 - HR 84BPM LAP 2 - 74BPM LAP 3 - 77BPM
[2024-08-03] MEDS: ASPIRIN 81 MG EC TAB PO SCH (08:16)
[2024-08-03] MEDS: LISINOPRIL 40 MG TABLET PO SCH (08:38)
[2024-08-03] MEDS: amLODIPine 5 MG TAB PO SCH (08:39)
[2024-08-03] MEDS: SPIRONOLACTONE 25 MG TAB PO SCH (09:00)
--- NOTE | 2024-08-03 09:12 | PN ---
[facility] CARDIOLOGY PROGRESS NOTE Date Patient Seen: Aug 03, 2024 Time of Visit: 09:00 Interval History: This 64-year-old Latin-Martiniquais male, [place] , with a history of obesity, essential hypertension, hyperlipidemia, mild resting bradycardia since 2021, nocturnal bradycardia to 37 beats per minute documented in 2021 (felt to be related to sleep apnea, but with an apnea-hypopnea index of only 2.4 episodes per hour), and type 2 diabetes was referred from the [facility] for evaluation of recurrent syncope. He had an initial episode May 2024 shortly after mowing his grass in the heat at which time he had syncope and hit his head on concrete. He did not seek medical attention. Ten days ago he had a recurrent episode of syncope shortly after visiting his brother, returning to his home in a golf cart and shortly after arising from the golf cart had adalberto syncope and then difficulty a rising from the ground due to generalized weakness. He did not seek medical attention despite the fact that he was symptomatic for about 1 hour with generalized weakness following this episode. The [facility] phoned the heart clinic office 08/01/2024 and the clinic advised that he be evaluated in the ER and he was admitted for further evaluation and management. In the ER the patient had a CT of the head which demonstrated no acute findings. His EKG has demonstrated normal tracings and a 2D echocardiogram demonstrated mild concentric LVH, an LVEF of 60-65%, a mildly dilated right ventricle, and normal valvular structures. The patient on telemetry has had sinus bradycardia in the 50 beat per minute range and nocturnally at midnight had a heart rate of 42 beats per minute in sinus rhythm. On telemetry the patient was ambulated around the 2nd floor cord or worse in at lap one had a heart rate of 84 beats per minute, lab to of rapid walk 74 beats per minute, and lab three of a rapid walk 77 beats per minute with associated dyspnea and fatigue. His heart rate returned to 56 quickly upon resting. A TSH and T4 were both within normal limits. Patient previously was evaluated at the [facility] by Dr. Sacha Rossi October 19, 2021 for atypical chest pain and resting bradycardia. At that time was found to have mild resting bradycardia, worse nocturnally to 37 beats per minute, and a sleep study demonstrating mild obstructive sleep apnea with an apnea-hypopnea index of only 2.4 per hour. Because of complaints of chronic orthopnea the patient was not able to lie supine for a Lexiscan Cardiolite stress test. Physical Examination: GENERAL: No acute distress. HEAD: Normal with no signs of head trauma. EYES: PERRLA, EOMI, conjunctiva and sclera normal. NECK: Supple without JVD. There is no tenderness, lymphadenopathy, or masses. No thyromegaly. Normal carotid upstrokes without bruits. LUNGS: Clear breath sounds bilaterally. No wheezes, or rhonchi. HEART: Normal rate and rhythm. Normal S1 and S2 without murmurs, gallop or rub. VASC: Peripheral pulses +2 bilaterally. EXT: No clubbing, cyanosis or edema. NEURO: Awake, alert, and oriented x3. No focal neurological deficits noted. Laboratory: Hematology Labs: Test 08/03/24 04:05 08/02/24 03:58 Range/Units White Blood Count 8.3 4.8-10.8 K/uL Red Blood Count 4.87 4.50-6.20 MIL/uL Hemoglobin 14.7 14.0-18.0 g/dL Hematocrit 43.4 42-54 % Mean Corpuscular Volume 89.1 79-99 fL Mean Corpuscular Hemoglobin 30.2 27.0-33.0 pg Mean Corpuscular Hemoglobin Concent 33.9 32.0-36.0 g/dL Red Cell Distribution Width 13.9 11.0-15.5 % Platelet Count 177 130-400 K/uL Mean Platelet Volume 11.9 H 7.5-10.5 fL Nucleated Red Blood Cells 0.0 0.0-0.19 % Immature Granulocyte % (Auto) 0.2 0-1 % Neutrophils (%) (Auto) 63.7 40.0-77.0 % Lymphocytes (%) (Auto) 22.7 21.0-51.0 % Monocytes (%) (Auto) 9.2 3.0-13.0 % Eosinophils (%) (Auto) 3.8 0.0-8.0 % Basophils (%) (Auto) 0.4 0.0-5.0 % Neutrophils # (Auto) 6.0 1.8-7.7 K/uL Lymphocytes # (Auto) 2.2 1.0-4.8 K/uL Monocytes # (Auto) 0.9 0.1-1.0 K/uL Eosinophils # (Auto) 0.36 0.00-0.70 K/uL Basophils # (Auto) 0.04 0.00-0.20 K/uL Absolute Immature Granulocyte (auto 0.02 0-1 K/uL Chemistry Labs: Test 08/03/24 06:29 08/03/24 04:05 08/02/24 03:58 08/01/24 16:21 Range/Units Whole Blood Glucose 105 70-110 MG/DL Sodium Level 143 136-145 mmol/L Potassium Level 4.4 3.5-5.1 mmol/L Chloride Level 106 101-111 mmol/L Carbon Dioxide Level 29 21-32 mmol/L Blood Urea Nitrogen 14 7-18 mg/dL Creatinine 0.9 0.5-1.3 mg/dL Glomerular Filtration Rate Calc 95 >90 mL/min Random Glucose 116 H 70-105 mg/dL Total Calcium 9.0 8.5-10.1 mg/dL Magnesium Level 1.90 1.80-2.40 mg/dL Total Bilirubin 0.3 0.2-1.0 mg/dL Aspartate Amino Transf (AST/SGOT) 19 10-37 U/L Alanine Aminotransferase (ALT/SGPT) 25 12-78 U/L Alkaline Phosphatase 95 50-136 U/L Total Protein 6.3 6.0-8.3 g/dL Albumin 3.1 L 3.5-5.0 g/dL Triglycerides Level 135 30-200 mg/dL Cholesterol Level 136 <200 mg/dL LDL Cholesterol 77 0-99 mg/dL HDL Cholesterol 42 29-71 mg/dL Thyroid Stimulating Hormone (TSH) 0.71 0.36-3.74 uIU/mL Free Thyroxine (T4) Direct 0.90 0.76-1.46 ng/dL Hemoglobin A1c 6.0 4.0-6.0 % Estimated Average Glucose (eAG) 126 70-126 mg/dL Phosphorus Level 3.7 2.5-4.9 mg/dL Direct Bilirubin 0.2 0.0-0.3 mg/dL Troponin I High Sensitivity 10 4-75 ng/L Coagulation Labs: Test 08/01/24 16:21 Range/Units Prothrombin Time 10.7 9.6-11.6 SEC Prothromb Time International Ratio 0.95 0.85-1.15 Activated Partial Thromboplast Time 26.8 26.3-35.5 SEC Diagnostics / Radiology: Bilateral carotid Doppler 08/01/2024: IMPRESSION: No evidence for moderate or high-grade flow-rate limiting stenosis. Parameters as reported. DICTATED BY: ALEX GODWIN MD DATE: 08/01/241999 2D echocardiogram 08/02/2024: Conclusion The right ventricle is mildly dilated measuring 4.6 cm at the base (normal < 4.1 cm). The left atrium size is mildly dilated with an LA ESV index of 38 mL/m. Mild concentric LVH. GLS -21.0%. There is normal LV segmental wall motion. LVEF is 60-65%. Indeterminate diastolic dysfunction. The aortic valve is normal in structure. There is no mitral valve regurgitation noted. There is no pericardial effusion. DICTATED BY: MONA WESLEY MD DATE: 08/02/24 1007 Impression and Plan: Recurrent syncope with episode two months ago and recurrent episode 10 days prior to admission: Resting bradycardia, nocturnally to 37 beats per minute documented since 2021, and nocturnally to 42 beats per minute on current admission, consistent with sleep apnea: No evidence of orthostatic hypotension on current admission: Mild chronotropic incompetence with heart rate at rest in the 50s, increasing to 84 with activity and subsequently falling into the 70 beat per minute range: -avoid any medications which could exacerbate bradycardia (currently on no medications that could lead to bradycardia) -TSH and T4 within normal limits on current admission -check an a.m. cortisol level, pending -proceed with EP consultation Negative bilateral carotid Doppler examination 08/01/2024: Normal LV systolic function with LVEF of 60-65% with mild concentric LVH and normal valvular structures by 2D echo 08/02/2024: Atypical Chest Pain: Multiple risk factors for coronary artery disease (hypertension, hyperlipidemia, and type 2 diabetes mellitus): -proceed with a Lexiscan Cardiolite stress test today to screen for ischemia -begin antiplatelet therapy with aspirin 81 mg daily -a lipid panel on rosuvastatin 10 mg daily demonstrated a total cholesterol of 136, triglycerides 135, LDL 77, and HDL of 42 Mild sleep apnea by prior sleep study September 21, 2021 with apnea-hypopnea index of 2.4 episodes per hour only: -proceed with a repeat sleep study after discharge at the office of Dr. Brothers in [place] Bilateral lower extremity pain and weakness, without evidence of PID on exam: -proceed with bilateral lower extremity arterial Doppler -withdraw statin therapy and assess response Comorbidities: Essential hypertension Hyperlipidemia Type 2 diabetes mellitus on metformin Obesity MONA WESLEY MD Aug 03, 2024 09:11
--- NOTE | 2024-08-03 12:14 | HMCIMG ---
US ARTERIAL BILAT LOW EXT DUPL REASON: LOWER EXTREMITY PAIN COMPARISON: None TECHNIQUE: Bilateral extremity arterial Doppler evaluation was performed with spectral analysis and color flow imaging. FINDINGS: There are normal triphasic waveforms present throughout both lower extremities flow velocities are preserved as well. There is no evidence of arterial inflow occlusion. IMPRESSION: 1. No evidence of arterial inflow occlusion in either lower extremity.
--- NOTE | 2024-08-03 12:31 | PN ---
[facility] PROGRESS NOTE Date of Service: Aug 03, 2024 Time of Service: 12:28 SUBJECTIVE: Patient is seen and examined at bedside, BP 136/78, heart rate of 52, afebrile, saturating normal on room air. CBC unremarkable. Chest x-ray on admission normal single-view. CT head normal. Carotid ultrasound no evidence of moderate or high-grade flow limiting stenosis. Echocardiogram pending. 08/03/24 patient is seen and examined, BP mildly elevated 150/78, heart rate still slow at 52, saturating normal on room air, afebrile. Echocardiogram shows LVEF 60-65%, aortic valve is normal in structure, no mitral valve regurgitation, no pericardial effusion. Cardiology input noted and appreciated, proceed with a Lexiscan Cardiolite stress test today to screen for ischemia. EP consultation requested. Continue aspirin 81 mg p.o. daily. Patient will benefit from repeat sleep study as an outpatient at the office of Dr. Brothers in [facility] upon discharge. REVIEW OF SYSTEMS CONSTITUTIONAL: Denies fevers, chills, or night sweats. No unintentional weight loss reported. NEUROLOGICAL: Denies headache, amaurosis fugax, motor weakness, sensory deficit, vertigo/spinning sensation, gait abnormalities, or tremors. ENT: No hearing loss, otalgia, otorrhea, rhinitis, rhinorrhea, hoarseness, or sore throat. CARDIOVASCULAR: Denies any exertional angina, dyspnea on exertion, orthopnea, paroxysmal nocturnal dyspnea, palpitations, life-threatening arrhythmias, claudication. PULMONARY: Denies any shortness of breath, cough, phlegm/sputum, hemoptysis, pleuritic chest pain. SLEEP: Denies morning headaches, daytime somnolence or napping. Denies difficulty falling asleep, staying asleep, waking from sleep. Denies knowledge of snoring. GASTROINTESTINAL: Denies any type of dysphagia to either liquids or solids. Denies nausea, vomiting, pyrosis, early satiety, abdominal pain, diarrhea, constipation, or changes in stool consistency or caliber. Denies coffee-ground emesis, hematemesis, hematochezia, or melanotic stools. GENITOURINARY: Denies frequency, urgency, nocturia, hematuria or incontinence (Storage/Irritative symptoms.) Low urinary stream, straining to void, urinary intermittency or hesitancy, splitting of the voiding stream, terminal dribbling. ENDOCRINOLOGIC: Denies polyuria, polydipsia, polyphagia or heat/cold intolerances. HEMATOLOGIC: Denies thrombophilia/previous clots, or coagulopathy/bleeding disorders. ONCOLOGIC: Denies personal history of malignancy. DERMATOLOGIC: Denies rashes or pruritus. PSYCHIATRIC: Denies any suicidal or homicidal ideation. Denies hallucinations. PHYSICAL EXAM GENERAL APPEARANCE: The patient is awake, alert, and oriented, in no acute cardiopulmonary distress. NEUROLOGICAL: Cranial nerves II-XII grossly intact. Motor is 5/5 in bilateral upper and lower extremities proximal to distal. No sensory deficits. HEENT: Face is symmetric. Pupils are equal and reactive. Extraocular movements are intact. NECK: Supple. No JVD. No thyromegaly. No submental, submandibular, pre- /postauricular, occipital or supraclavicular lymphadenopathy. CHEST: Normal chest expansion. No Telemetry. LUNGS: Absence of any rales, rhonchi or any wheezing. CARDIOVASCULAR: Regular. S1 and S2 normal. No appreciable rubs, murmurs or gallops. ABDOMEN: Soft, nontender, and nondistended. There is no rebound, voluntary guarding, or rigidity. : Deferred. No Nesbitt. EXTREMITIES: Non-edematous and not cyanotic. No clubbing. Good capillary refill. SKIN: No skin breakdown. Vital Signs (last 8hr) Date Time Temp Pulse Resp B/P (MAP) Pulse Ox O2 Delivery O2 Flow Rate FiO2 08/03/24 12:03 97.9 52 18 150/78 96 Room Air 08/03/24 08:13 52 18 161/76 96 Room Air 08/03/24 08:12 50 18 152/77 96 Room Air 08/03/24 08:10 97.7 49 18 132/73 96 Room Air 08/03/24 08:00 95 Room Air* 0 21 08/03/24 04:58 98.2 73 18 130/70 97 Room Air LABS: Laboratory: Test 08/03/24 11:44 08/03/24 04:05 08/02/24 03:58 08/01/24 20:40 Range/Units Whole Blood Glucose 96 70-110 MG/DL White Blood Count 8.3 4.8-10.8 K/uL Red Blood Count 4.87 4.50-6.20 MIL/uL Hemoglobin 14.7 14.0-18.0 g/dL Hematocrit 43.4 42-54 % Mean Corpuscular Volume 89.1 79-99 fL Mean Corpuscular Hemoglobin 30.2 27.0-33.0 pg Mean Corpuscular Hemoglobin Concent 33.9 32.0-36.0 g/dL Red Cell Distribution Width 13.9 11.0-15.5 % Platelet Count 177 130-400 K/uL Mean Platelet Volume 11.9 H 7.5-10.5 fL Nucleated Red Blood Cells 0.0 0.0-0.19 % Erythrocyte Sedimentation Rate 6 0-20 MM/HR Sodium Level 143 136-145 mmol/L Potassium Level 4.4 3.5-5.1 mmol/L Chloride Level 106 101-111 mmol/L Carbon Dioxide Level 29 21-32 mmol/L Blood Urea Nitrogen 14 7-18 mg/dL Creatinine 0.9 0.5-1.3 mg/dL Glomerular Filtration Rate Calc 95 >90 mL/min Random Glucose 116 H 70-105 mg/dL Total Calcium 9.0 8.5-10.1 mg/dL Magnesium Level 1.90 1.80-2.40 mg/dL Total Bilirubin 0.3 0.2-1.0 mg/dL Aspartate Amino Transf (AST/SGOT) 19 10-37 U/L Alanine Aminotransferase (ALT/SGPT) 25 12-78 U/L Alkaline Phosphatase 95 50-136 U/L Total Protein 6.3 6.0-8.3 g/dL Albumin 3.1 L 3.5-5.0 g/dL Triglycerides Level 135 30-200 mg/dL Cholesterol Level 136 <200 mg/dL LDL Cholesterol 77 0-99 mg/dL HDL Cholesterol 42 29-71 mg/dL Thyroid Stimulating Hormone (TSH) 0.71 0.36-3.74 uIU/mL Free Thyroxine (T4) Direct 0.90 0.76-1.46 ng/dL Immature Granulocyte % (Auto) 0.2 0-1 % Neutrophils (%) (Auto) 63.7 40.0-77.0 % Lymphocytes (%) (Auto) 22.7 21.0-51.0 % Monocytes (%) (Auto) 9.2 3.0-13.0 % Eosinophils (%) (Auto) 3.8 0.0-8.0 % Basophils (%) (Auto) 0.4 0.0-5.0 % Neutrophils # (Auto) 6.0 1.8-7.7 K/uL Lymphocytes # (Auto) 2.2 1.0-4.8 K/uL Monocytes # (Auto) 0.9 0.1-1.0 K/uL Eosinophils # (Auto) 0.36 0.00-0.70 K/uL Basophils # (Auto) 0.04 0.00-0.20 K/uL Absolute Immature Granulocyte (auto 0.02 0-1 K/uL Hemoglobin A1c 6.0 4.0-6.0 % Estimated Average Glucose (eAG) 126 70-126 mg/dL Phosphorus Level 3.7 2.5-4.9 mg/dL Urine Color YELLOW YELLOW Urine Appearance CLEAR CLEAR Urine pH 6.5 5.0-8.0 Urine Specific [place] 1.022 1.001-1.031 Urine Protein NEGATIVE NEGATIVE mg/dL Urine Glucose (UA) NEGATIVE NEGATIVE mg/dL Urine Ketones NEGATIVE NEGATIVE mg/dL Urine Occult Blood NEGATIVE NEGATIVE Urine Nitrate NEGATIVE NEGATIVE Urine Bilirubin NEGATIVE NEGATIVE mg/dL Urine Urobilinogen 3 H 0.2-1.0 mg/dL Urine Leukocyte Esterase NEGATIVE NEGATIVE Cynthia/uL Test 08/01/24 16:21 Range/Units Prothrombin Time 10.7 9.6-11.6 SEC Prothromb Time International Ratio 0.95 0.85-1.15 Activated Partial Thromboplast Time 26.8 26.3-35.5 SEC Direct Bilirubin 0.2 0.0-0.3 mg/dL Troponin I High Sensitivity 10 4-75 ng/L Current Medications Medications (Trade) Dose Ordered Sig/Su Route PRN Reason Start Time Stop Time Status Last Admin Dose Admin Acetaminophen (TYLenol 325MG TAB) 650 mg Q6H PRN PO TEMPERATURE GREATER THAN 101.5 08/01/24 18:30 08/31/24 18:29 08/02/24 15:55 650 MG Amlodipine Besylate (NorvASC 5MG TAB) 5 mg BID PO 08/02/24 21:00 08/02/24 18:26 DC Amlodipine Besylate (NorvASC 5MG TAB) 5 mg DAILY PO 08/03/24 09:00 09/02/24 08:59 08/03/24 08:39 5 MG Aspirin (Aspirin 81mg Ec Tab) 81 mg DAILY PO 08/03/24 09:00 09/02/24 08:59 08/03/24 08:16 81 MG Atorvastatin Calcium (LIPItor 20MG) 20 mg HS PO 08/02/24 21:00 08/03/24 08:29 DC 08/02/24 21:26 20 MG Enoxaparin Sodium (Lovenox) 40 mg DAILY SQ 08/02/24 09:00 09/01/24 08:59 08/03/24 08:17 40 MG Famotidine (Pepcid 20mg Tab) 20 mg DAILY PO 08/02/24 09:00 09/01/24 08:59 08/03/24 08:16 20 MG Hydralazine HCl (APRESOLine 20MG INJ) 10 mg Q6H PRN IV For:SBP above 160;DBP above 90 08/01/24 18:30 08/31/24 18:29 Insulin Human Regular (humuLIN R 100 UNIT/ML 3ML) INSULIN SLIDING SCAL... ACHS SQ 08/01/24 21:00 08/31/24 20:59 Lisinopril (Prinivil 10mg) 10 mg BID PO 08/02/24 21:00 08/02/24 18:26 DC Lisinopril (Prinivil 40mg) 40 mg DAILY PO 08/03/24 09:00 09/02/24 08:59 08/03/24 08:38 40 MG Morphine Sulfate (morPHINE 2MG SYG) 2 mg Q4H PRN IVP SEVERE PAIN (7-10) 08/01/24 18:30 08/08/24 18:29 Ondansetron HCl (zoFRAN 4MG INJ) 4 mg Q6H PRN IV NAUSEA/VOMITING 08/01/24 18:30 08/31/24 18:29 Spironolactone (Aldactone 25mg) 25 mg DAILY PO 08/03/24 09:00 09/02/24 08:59 DIAGNOSTICS / RADIOLOGY: [ ] ASSESSMENT: Syncope, POA Diabetes mellitius type2 Hypertension Hyperlipidemia PLAN: Admit patient to PCU as inpatient status. Place patient on telemetry monitoring. Cardiology consultation requested, follow input and recommendation Echocardiogram ordered, to evaluate ejection fraction Carotid Doppler was unremarkable Neuro checks every 4 hours with the vital signs (check GCS, level of consciousness, extremity movement, pupil reaction, hand grasp strength, speech clarity) Fall precautions Orthostatic vital signs Hemoglobin A1c 6.0 Glucometer checks a.c. and HS 1800 ADA diet Humulin R sliding scale 1/2 dose Consider resuming home medications once they are reconciled For now, Hydralazine 10 mg IV every 4 hours for systolic blood pressure greater than 160 mmHg GI prophylaxis, famotidine 20 mg by mouth once daily. DVT prophylaxis, Lovenox 40 mg subcutaneously once daily. Disposition: Remains admitted to PCU, Lexiscan Cardiolite stress test today, EP consulted. Total time spent greater than 30 minutes. SHU THOMAS MD Aug 03, 2024 12:31
[2024-08-03] MEDS: REGADENOSON 0.4 MG/5 ML PF SYG IVP SCH (15:05)
--- NOTE | 2024-08-03 18:32 | HMCSR ---
APPROVED REPORT TEST INDICATIONS BRADYCARDIA The imaging protocol used to acquire images was Rest Tc-99m/stress Tc-99m 1 day Consent: The procedure was explained and understood by the patient. Informerd consent was witnessed DANYELLE Hathaway First, low dose rest was performed then high dose stress. RESTING DATA: The resting ekg shows: NSR Rest SPECT myocardial perfusion imaging was performed in supine position minutes following the intra venous injection of 10 mCi of Tc-99 Sestamibi. Time of rest injection: 1200 Date: 08/03/2024 PHARMACOLOGIC STRESS: Pharmacologic stress test was performed by injecting regadenoson 0.4 mg IV push followed by the intra venous injection of 23 mCi of Tc-99 Sestamibi. Time of stress injection: 1441 Date: 08/03/2024 Heart Rate at time of stress injection: 55 bpm. The images were gated to evaluate regional wall motion and calculate left ventricular ejection fracti on. STRESS DETAILS Reason for Termination: Infusion complete Stress Symptoms: No chest pain or symptoms Max HR Achieved: 84 bpm % of APMHR Achieved: 63 Max Blood Pressure: 167/90 mmHg Stress ECG: NSR Study quality was good. Lung uptake was Normal. Artifact: No artifact IMPRESSION Normal pharmacologic nuclear stress test. Conclusion Normal perfusion. TID 0.85. LVEF 64%.
[2024-08-03] MEDS: hydrALAZine 20MG/ML VIAL IV PRN (20:33)
[2024-08-04 00:10] VITALS: BP 117/63; PULSE 67; RESP 18; TEMP 97.5
[2024-08-04 04:04] LABS: HEMATOCRIT 43.1 % (42-54); MEAN CORPUSCULAR HGB CONC 34.3 g/dL (32.0-36.0); MEAN CORPUSCULAR VOLUME 87.4 fL (79-99); RED BLOOD CELL COUNT(AUTO) 4.93 MIL/uL (4.50-6.20); RED CELL DISTRIBUTION WIDTH 13.7 % (11.0-15.5); WHITE BLOOD COUNT (AUTO) 10.2 K/uL (4.8-10.8)
[2024-08-04 04:10] VITALS: BP 132/75; PULSE 54; RESP 22; TEMP 97.7
[2024-08-04 04:34] LABS: ALBUMIN 3.2 g/dL (3.5-5.0); BILIRUBIN,TOTAL 0.4 mg/dL (0.2-1.0); CREATININE 0.8 mg/dL (0.5-1.3); MAGNESIUM 1.9 mg/dL (1.80-2.40); POTASSIUM 3.8 mmol/L (3.5-5.1); TOTAL PROTEIN, SERUM 6.7 g/dL (6.0-8.3)
[2024-08-04 07:46] VITALS: BP 138/79; PULSE 57; RESP 16; TEMP 97.6
[2024-08-04] MEDS ORDERED: TELM80TA10 PO (08:36)
[2024-08-04] MEDS ORDERED: AMLO-257 PO (08:36)
[2024-08-04] MEDS ORDERED: SPIR25TA6 PO (08:36)
--- NOTE | 2024-08-04 08:59 | PN ---
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 He had an initial episode May 2024 shortly after mowing his grass in the heat at which time he had syncope and hit his head on concrete. He did not seek medical attention. Ten days ago he had a recurrent episode of syncope shortly after visiting his brother, returning to his home in a golf cart and shortly after arising from the golf cart had adalberto syncope and then difficulty a rising from the ground due to generalized weakness. He did not seek medical attention despite the fact that he was symptomatic for about 1 hour with generalized weakness following this episode. The [facility] phoned the heart clinic office 08/01/2024 and the clinic advised that he be evaluated in the ER and he was admitted for further evaluation and management. In the ER the patient had a CT of the head which demonstrated no acute findings. His EKG has demonstrated normal tracings and a 2D echocardiogram 08/02/2023 demonstrated mild concentric LVH, an LVEF of 60-65%, a mildly dilated right ventricle, and normal valvular structures. The patient underwent bilateral carotid Doppler examination 08/01/2024 demonstrating no evidence of hemodynamically significant carotid artery disease. Bilateral lower extremity arterial Doppler to evaluate complaints of leg pain demonstrated triphasic waveforms and no evidence of lower extremity peripheral arterial disease 08/03/2023. A Lexiscan Cardiolite stress test 08/03/2023 demonstrated normal stress perfusion and a gated EF of 64%. The patient on telemetry has had sinus bradycardia in the 50 beat per minute range and nocturnally at midnight had a heart rate of 42 beats per minute in sinus rhythm. On telemetry the patient was ambulated around the 2nd floor corridor and at lap one had a heart rate of 84 beats per minute, lap 2 of rapid walk 74 beats per minute, and lap 3 of a rapid walk 77 beats per minute with associated dyspnea and fatigue. His heart rate returned to 56 quickly upon resting. A TSH and T4 were both within normal limits. Patient previously was evaluated at the [facility] by Dr. Sacha Rossi October 19, 2021 for atypical chest pain and resting bradycardia. At that time was found to have mild resting bradycardia, worse nocturnally to 37 beats per minute, and a sleep study demonstrating mild obstructive sleep apnea with an apnea-hypopnea index of only 2.4 per hour. Physical Examination: GENERAL: No acute distress. HEAD: Normal with no signs of head trauma. EYES: PERRLA, EOMI, conjunctiva and sclera normal. NECK: Supple without JVD. There is no tenderness, lymphadenopathy, or masses. No thyromegaly. Normal carotid upstrokes without bruits. LUNGS: Clear breath sounds bilaterally. No wheezes, or rhonchi. HEART: Normal rate and rhythm. Normal S1 and S2 without murmurs, gallop or rub. VASC: Peripheral pulses +2 bilaterally. EXT: No clubbing, cyanosis or edema. NEURO: Awake, alert, and oriented x3. No focal neurological deficits noted. Laboratory: Hematology Labs: Test 08/04/24 03:31 08/03/24 04:05 Range/Units White Blood Count 10.2 4.8-10.8 K/uL Red Blood Count 4.93 4.50-6.20 MIL/uL Hemoglobin 14.8 14.0-18.0 g/dL Hematocrit 43.1 42-54 % Mean Corpuscular Volume 87.4 79-99 fL Mean Corpuscular Hemoglobin 30.0 27.0-33.0 pg Mean Corpuscular Hemoglobin Concent 34.3 32.0-36.0 g/dL Red Cell Distribution Width 13.7 11.0-15.5 % Platelet Count 203 130-400 K/uL Mean Platelet Volume 11.5 H 7.5-10.5 fL Nucleated Red Blood Cells 0.0 0.0-0.19 % Erythrocyte Sedimentation Rate 6 0-20 MM/HR Chemistry Labs: Test 08/04/24 05:54 08/04/24 03:31 08/03/24 04:05 Range/Units Whole Blood Glucose 173 H 70-110 MG/DL Sodium Level 140 136-145 mmol/L Potassium Level 3.8 3.5-5.1 mmol/L Chloride Level 103 101-111 mmol/L Carbon Dioxide Level 27 21-32 mmol/L Blood Urea Nitrogen 15 7-18 mg/dL Creatinine 0.8 0.5-1.3 mg/dL Glomerular Filtration Rate Calc 99 >90 mL/min Random Glucose 113 H 70-105 mg/dL Total Calcium 9.2 8.5-10.1 mg/dL Magnesium Level 1.90 1.80-2.40 mg/dL Total Bilirubin 0.4 # 0.2-1.0 mg/dL Aspartate Amino Transf (AST/SGOT) 19 10-37 U/L Alanine Aminotransferase (ALT/SGPT) 25 12-78 U/L Alkaline Phosphatase 102 50-136 U/L Total Protein 6.7 6.0-8.3 g/dL Albumin 3.2 L 3.5-5.0 g/dL Triglycerides Level 135 30-200 mg/dL Cholesterol Level 136 <200 mg/dL LDL Cholesterol 77 0-99 mg/dL HDL Cholesterol 42 29-71 mg/dL Thyroid Stimulating Hormone (TSH) 0.71 0.36-3.74 uIU/mL Free Thyroxine (T4) Direct 0.90 0.76-1.46 ng/dL Diagnostics / Radiology: Bilateral carotid Doppler 08/01/2024: IMPRESSION: No evidence for moderate or high-grade flow-rate limiting stenosis. Parameters as reported. DICTATED BY: ALEX GODWIN MD DATE: 08/01/241999 2D echocardiogram 08/02/2024: Conclusion The right ventricle is mildly dilated measuring 4.6 cm at the base (normal < 4.1 cm). The left atrium size is mildly dilated with an LA ESV index of 38 mL/m. Mild concentric LVH. GLS -21.0%. There is normal LV segmental wall motion. LVEF is 60-65%. Indeterminate diastolic dysfunction. The aortic valve is normal in structure. There is no mitral valve regurgitation noted. There is no pericardial effusion. DICTATED BY: MONA WESLEY MD DATE: 08/02/24 1007 Lexiscan Cardiolite stress test 08/03/2024: IMPRESSION Normal pharmacologic nuclear stress test. Conclusion: Normal perfusion. TID 0.85. LVEF 64%. DICTATED BY: SILVIA GOYAL MD DATE: 08/03/24 1221 Bilateral lower extremity arterial Doppler exam 08/03/2024: IMPRESSION: 1. No evidence of arterial inflow occlusion in either lower extremity. DICTATED BY: DARRYL DESIR MD DATE: 08/03/24 1211 Impression and Plan: Recurrent syncope with episode two months ago and recurrent episode 10 days prior to admission: Resting bradycardia, nocturnally to 37 beats per minute documented since 2021, and nocturnally to 42 beats per minute on current admission, consistent with sleep apnea: No evidence of orthostatic hypotension on current admission: Mild chronotropic incompetence with heart rate at rest in the 50s, increasing to 84 with activity and subsequently falling into the 70 beat per minute range: - proceed with an outpatient treadmill stress test to assess for chronotropic incompetence - avoid any medications which could exacerbate bradycardia (currently on no medications that could lead to bradycardia) - TSH and T4 within normal limits on current admission - a.m. cortisol level is still pending - proceed with EP consultation (inpatient or outpatient) - cleared for discharge home from my viewpoint Negative bilateral carotid Doppler examination 08/01/2024: Normal LV systolic function with LVEF of 60-65% with mild concentric LVH and normal valvular structures by 2D echo 08/02/2024: Atypical chest Pain: Multiple risk factors for coronary artery disease (hypertension, hyperlipidemia, and type 2 diabetes mellitus): Normal stress perfusion on Lexiscan Cardiolite stress test 08/03/2024 with gated EF of 64%: - begin antiplatelet therapy with aspirin 81 mg daily - a lipid panel on rosuvastatin 10 mg daily demonstrated a total cholesterol of 136, triglycerides 135, LDL 77, and HDL of 42 Mild sleep apnea by prior sleep study September 21, 2021 with apnea-hypopnea index of 2.4 episodes per hour only: - proceed with a repeat sleep study after discharge at the office of Dr. Brothers in [place] Bilateral lower extremity pain and weakness, without evidence of PID on exam: - bilateral lower extremity arterial Doppler 08/03/2024 is normal without evidence of peripheral arterial disease - withdraw statin therapy and assess response - sed rate, IMANI, and RA latex are all within normal limits on current admission Comorbidities: Essential hypertension Hyperlipidemia Type 2 diabetes mellitus on metformin Obesity MONA WESLEY MD Aug 04, 2024 08:59
[2024-08-04 09:00] VITALS: O2SAT 98
--- NOTE | 2024-08-04 11:35 | CONS ---
[facility] CARDIAC ELECTROPHYSIOLOGY CONSULTATION Date Patient Seen: Aug 04, 2024 Time of Visit: 11:26 Reason for Consultation: Recurrent syncope and bradycardia History of Present Illness: The patient is a 64-year-old male with a history of hypertension, hyperlipidemia, type 2 diabetes and obesity who who was referred from the [facility] for recurrent syncope. He has a history of resting bradycardia for the last two years going down into the 30s during sleep, felt to be related to sleep apnea. Back in May of this year, he had an episode of syncope preceded by dizziness and weakness, occurring while he was out mowing his lawn in the heat. He is a of the [email or web address] and he states that he has been trying to push through any discomfort. At that time he had abrasions to his head but no major injury. The 2nd episode was approximately 10 days ago when he was in a golf cart and upon arising developed adalberto syncope with generalized weakness. He also notes that when he was in his 30s, he had an episode of passing out briefly while driving and another similar episode while walking but this had not recurred since that time. Regarding his exercise tolerance, he has been feeling more fatigued than usual and has to stop his activities to rest, which she has attributed to his age. Here in the hospital, he has had heart rates in the 40s to 60s. After three laps around the hallway yesterday, he achieved a heart rate in the 70s to 80s however he experienced dyspnea and fatigue on the 3rd lap. EKG shows sinus bradycardia with normal intervals and no evidence of conduction system disease. Thyroid studies are normal. He had a Lexiscan stress test which was completely normal. Past Medical History: As above Family History: Noncontributory Social History: Retired , denies smoking or alcohol abuse Review of Systems: Negative on a 13 point review Physical Examination: GENERAL: In no apparent distress HEENT: Within normal limits NECK: No JVD LUNGS: Clear HEART: Regular with no murmur EXT: No edema Vital Signs (last 8hr) Date Time Temp Pulse Resp B/P (MAP) Pulse Ox O2 Delivery O2 Flow Rate FiO2 08/04/24 09:00 98 Room Air* 0 21 08/04/24 07:46 97.5 57 16 138/79 97 Room Air 08/04/24 04:10 97.7 54 22 132/75 97 Room Air Laboratory: [ ] Hematology Labs: Test 08/04/24 03:31 08/03/24 04:05 Range/Units White Blood Count 10.2 4.8-10.8 K/uL Red Blood Count 4.93 4.50-6.20 MIL/uL Hemoglobin 14.8 14.0-18.0 g/dL Hematocrit 43.1 42-54 % Mean Corpuscular Volume 87.4 79-99 fL Mean Corpuscular Hemoglobin 30.0 27.0-33.0 pg Mean Corpuscular Hemoglobin Concent 34.3 32.0-36.0 g/dL Red Cell Distribution Width 13.7 11.0-15.5 % Platelet Count 203 130-400 K/uL Mean Platelet Volume 11.5 H 7.5-10.5 fL Nucleated Red Blood Cells 0.0 0.0-0.19 % Erythrocyte Sedimentation Rate 6 0-20 MM/HR Chemistry Labs: Test 08/04/24 11:15 08/04/24 03:31 08/03/24 04:05 Range/Units Whole Blood Glucose 129 H 70-110 MG/DL Sodium Level 140 136-145 mmol/L Potassium Level 3.8 3.5-5.1 mmol/L Chloride Level 103 101-111 mmol/L Carbon Dioxide Level 27 21-32 mmol/L Blood Urea Nitrogen 15 7-18 mg/dL Creatinine 0.8 0.5-1.3 mg/dL Glomerular Filtration Rate Calc 99 >90 mL/min Random Glucose 113 H 70-105 mg/dL Total Calcium 9.2 8.5-10.1 mg/dL Magnesium Level 1.90 1.80-2.40 mg/dL Total Bilirubin 0.4 # 0.2-1.0 mg/dL Aspartate Amino Transf (AST/SGOT) 19 10-37 U/L Alanine Aminotransferase (ALT/SGPT) 25 12-78 U/L Alkaline Phosphatase 102 50-136 U/L Total Protein 6.7 6.0-8.3 g/dL Albumin 3.2 L 3.5-5.0 g/dL Triglycerides Level 135 30-200 mg/dL Cholesterol Level 136 <200 mg/dL LDL Cholesterol 77 0-99 mg/dL HDL Cholesterol 42 29-71 mg/dL Thyroid Stimulating Hormone (TSH) 0.71 0.36-3.74 uIU/mL Free Thyroxine (T4) Direct 0.90 0.76-1.46 ng/dL Assessment: 1. Sick sinus syndrome, probably symptomatic 2. Recurrent syncope, likely related to dehydration with contribution of autonomic dysfunction 3. Mild obstructive sleep apnea diagnosed in 2021. 4. Obesity-of note, the patient states he has lost considerable weight having been previously over 400 lb. Plan: 1. I do not believe the syncopal episodes are related to his sinus node dysfunction, however with dehydration and autonomic dysfunction as a contributing factor, he is unlikely to achieve an appropriate heart rate response. 2. His symptoms are highly suggestive of chronotropic incompetence, therefore we will schedule him for a treadmill stress test using the CAEP protocol (Chronot ropic Assessment Exercise Protocol). This not only assess his maximum heart rate heart rates at different levels of activity. The heart rate responses with increasing exertional compared to predicted norms based on age and other parameters. 3. The patient can be discharged today 4. There are already plans for repeat sleep study. 5. Follow up with me for the stress test and with Dr. Rossi. ADALBERTO RAMIREZ MD Aug 04, 2024 11:35
[2024-08-04 12:20] VITALS: BP 147/59; PULSE 54; RESP 16; TEMP 98.1
--- NOTE | 2024-08-04 13:11 | NUR ---
DISCHARGE Discharge dispo to home. No needs. Addendum: 08/04/24 at 1312 by PRAFUL ARTIS CM Amended: Links added.
--- NOTE | 2024-08-04 13:38 | DS ---
Discharge Summary Hospital Course Summary: Patient admitted to the hospital on August 01, 2024 with the following history of the present illness: Mr. Eng is a 64-year-old male that was seen and examined today on . Patient is a good historian and personal health. Patient states that he came to the emergency department with a chief complaint of lightheadedness. Onset was May 2024. Location is to head. Duration is on and off. Episodes last 5-10 seconds. Character is described as loss of balance. There was no alleviating factors. There was no aggravating factors. On previous episodes of dizziness they have been precipitated by cutting the grass. But patient has also had episodes that occur spontaneously while driving. Patient denies any associated chest pain or shortness and breath. 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 Dr. Santiago recommended patient go to the emergency department for evaluation. In the emergency room CBC is unremarkable, chemistry unremarkable, no urinalysis has been ordered or sent to lab, chest x-ray unremarkable, CT head unremarkable. Patient admitted to the PCU, placed on telemetry, no episodes of arrhythmias, cardiology consulted, recommendations were followed. Echocardiogram done, reported as follows: Conclusion The right ventricle is mildly dilated measuring 4.6 cm at the base (normal < 4.1 cm). The left atrium size is mildly dilated with an LA ESV index of 38 mL/m. Mild concentric LVH. GLS -21.0%. There is normal LV segmental wall motion. LVEF is 60-65%. Indeterminate diastolic dysfunction. The aortic valve is normal in structure. There is no mitral valve regurgitation noted. There is no pericardial effusion. Lexiscan stress test was done, normal pharmacologic nuclear stress test. During the course of the hospitalization electrophysiology consultation requested, syncopal episodes most likely related to dehydration and autonomic dysfunction as a contributing factor.symptoms are highly suggestive of chronotropic incompetence, therefore we will schedule him for a treadmill stress test using the CAEP protocol (Chronotropic Assessment Exercise Protocol). This not only assess his maximum heart rate heart rates at different levels of activity. The heart rate responses with increasing exertional compared to predicted norms based on age and other parameters. The patient can be discharged today. Patient already has plans for repeat sleep study as an outpatient. Patient to follow up as an outpatient with a either Dr. Sims or Dr Rossi. Etl Data Architect(s): Cardiology and electrophysiology. Assessment/Plan: Final diagnosis Syncope, POA Diabetes mellitius type2 Hypertension Hyperlipidemia Discharge Instructions: The patient to be discharged home today, to follow with primary care physician and Cardiology as an outpatient and to return to hospital if condition changes. Patient agreed with plan and understood the information provided. Home Medications: Active Scripts Lisinopril (Lisinopril) 10 Mg Tablet, 10 MG PO BID, #30 TAB Prov:THAD MCLEOD [employer]EL[employer]E [employer] HOST/HOSTESS 01/06/24 Reported Medications Gabapentin (Gabapentin) 100 Mg Capsule, 300 MG PO HS for PAIN, CAP 08/02/24 Nitroglycerin (Nitroglycerin) 0.4 Mg Tab.subl, 1 TAB SL AD for chest pain, #25 TAB 0 Refills 1st sign of attack; may repeat every 5 mins; if pain persists after 3 in 15 min, medical attention is recommended 08/02/24 Aspirin (ASPIRIN 81 MG ECTAB) 81 Mg Ectab, 81 MG PO DAILY, TAB.EC 01/04/24 Lisinopril (Lisinopril) 20 Mg Tablet, 10 MG PO BID, TAB 01/04/24 Amlodipine Besylate (Amlodipine Besylate) 5 Mg Tablet, 5 MG PO BID, TAB 01/04/24 Metformin HCl (Metformin HCl) 1,000 Mg Tablet, 1000 MG PO BID, TAB 01/04/24 Atorvastatin Calcium (LIPITOR) 20 Mg Tab, 20 MG PO HS, TAB 01/04/24 Discontinued Reported Medications Budesonide/Glycopyr/Formoterol (Breztri Aerosphere Inhaler) 160 Mcg-9 Mcg-4.8 Mcg/Actuation Hfa.aer.ad, 10.7 GM IH Q6HPRN 01/04/24 Discontinued Scripts Azithromycin (Azithromycin) 250 Mg Tablet, 250 MG PO BID, #14 TAB Prov:THAD MCLEOD [employer] H[employer]/HOSTESS 01/06/24 Cefdinir (Cefdinir) 300 Mg Capsule, 300 MG PO BID, #14 CAP Prov:THAD MCLEOD [employer] HOST/HOSTESS 01/06/24 Budesonide (Budesonide) 0.5 Mg/2 Ml Ampul.neb, 0.5 MG IH BIDRESP, #30 INH Prov:THAD MCLEOD [employer] H[employer]HOSTESS 01/06/24 Famotidine (Famotidine) 20 Mg Tablet, 20 MG PO BID, #30 TAB Prov:THAD MCLEOD [employer] H[employer]HOSTESS 01/06/24 Benzonatate (Benzonatate) 100 Mg Capsule, 200 MG PO TID, #60 CAP Prov:THAD MCLEOD [employer] HOST[employer]HOSTESS 01/06/24 Time spent arranging discharge: 31-60 minutes SHU THOMAS MD Aug 04, 2024 13:38
--- NOTE | 2024-08-04 14:15 | NUR ---
made staff aware at [facility] of appt to be made with him for CAEP studies x1 wk. pt was called while being discharged with information, aug 15 at 1020am in [facility]. per rounding pt is ok to leave home once seen by , will rearrange meds. pt to stop lisinpril and start telmisartan, lisinopril dose held this morning. pt was given all d/c documents with appts ,[facility] as walk[facility] pt right after he gets d\c'd from hospital. pt was explained all meds and next due doses, importance of follow up appts. iv removed 20g to left arm, intact, dressing placed, pt verbalized understanding to all information, family at beside, pt signed documents, wheeled down to private vehicle.
== END 2024-08-04 14:15 | disposition left against medical advice (07) | DRG 641 ==
LOC: EDH 15:21 → EDHIP 18:26 → 2AH 20:46
PROVIDERS: ADMIT Internal Medicine; ATTEND Internal Medicine
PROC: 4A02XM4 Measurement of Cardiac Total Activity, External Approach (ICD-10-PCS; principal; 2024-08-03)
PROC: 3E073KZ Introduction of Other Diagnostic Substance into Coronary Artery, Percutaneous Approach (ICD-10-PCS; 2024-08-03)
DX: E86.0 Dehydration (principal); E11.9 Type 2 diabetes mellitus without complications; I49.5 Sick sinus syndrome; G47.33 Obstructive sleep apnea (adult) (pediatric); E66.9 Obesity, unspecified; E78.00 Pure hypercholesterolemia, unspecified; I10 Essential (primary) hypertension; Z87.891 Personal history of nicotine dependence; Z79.82 Long term (current) use of aspirin; Z79.899 Other long term (current) drug therapy; Z79.84 Long term (current) use of oral hypoglycemic drugs; F45.8 Other somatoform disorders
CPT/HCPCS: 36415; 70450; 71045; 78452; 80048; 80053; 80061; 80076; 81003; 82533; 82948; 83036; 83735; 84100; 84439; 84443; 84484; 85025; 85027; 85610; 85651; 85730; 86038; 86215; 86235; 86431; 93005; 93017; 93306; 93356; 93880; 93925; 99285; A9500; G0378; J0360; J1650; J2785